=== PATIENT | male | born 1955 | race Caucasian/White ===

== ENCOUNTER → 2020-11-28 13:00 | Outpatient (BNVA) | payer MEDICARE, SELFPAY | PROVIDERS: Family Provider Physician Assistant; PCP Emergency Medicine; Referring Provider Physical Medicine & Rehabilitation; Visit Provider Nurse Practitioner | DX: Z86.73 Personal history of transient ischemic attack (TIA), and cerebral infarction without residual deficits (principal); Z87.891 Personal history of nicotine dependence | CPT/HCPCS: 99204 ==